=== PATIENT | female | born 1985 | race Caucasian/White ===

== ENCOUNTER 2021-11-29 16:44 | Inpatient (IN) ==
[2021-11-29] MEDS ORDERED: POTASSIUM CHL 60 MEQ/NS 0.45% 500 ML IV PRN (16:48)
[2021-11-29] MEDS ORDERED: K-RIDER 10 MEQ/NS 100 ML 10 MEQ/100 ML BAG IV PRN (16:48)
[2021-11-29] MEDS ORDERED: POTASSIUM CHLORIDE LIQ 20 MEQ UDC PO PRN (16:48)
[2021-11-29] MEDS ORDERED: MICRO K EXTEN CAP 10 MEQ PO PRN (16:48)
[2021-11-29] MEDS ORDERED: NS + KCL 20 MEQ/L 1,000 ML IV SCH (17:00)
[2021-11-29] MEDS ORDERED: ZOFRAN INJ 4 MG VIAL IVP PRN (18:11)
[2021-11-29] MEDS: KLOR-CON PO PRN (18:18)
--- NOTE | 2021-11-29 18:20 | DR.H&P ---
H&P - History & Physical for Day of: H&P Date: 11/29/21 - Chief Complaint Chief Complaint: N/V, WEAKNESS, "LOW POTASSIUM" - History of Present Illness History of Present Illness: PT IS 36 WF DIRECT ADMIT WITH HYPOKALEMIA AND N/V/D. PT REPORTS SHE HAD N/V OVER THE WEEKEND, MORE SEVERE ON SATURDAY. PT HAD OUTPT LABS WITH CRITICAL POTASSIUM REPORT THIS MORNING OF 1.6 PT WAS TREATED WITH POTASSIUM 60 MEQ PO THEN AND SENT TO [facility]. REPEAT POTASSIUM CRITICAL CONFIRMED, PT ADMITTED TO ICU FOR TREATMENT AND EVALUATION OF ACUTE ILLNESS. PT REPORTS PMH OF HYPERTENSION ON LISINOPRIL 10MG PO DAILY. PT REPORTS GERD, NOT CURRENTLY TAKING OMEPRAZOLE. PT DENIES ANY FEVER OR SOB. PT DENIES ANY KNOWN HISTORY OF HYPOKALEMIA. - Past Medical History Past Medical History: Hypertension - Past Surgical History Surgical History: Cholecystectomy, Other - Family History Family Medical History: Diabetes Mellitus, Cancer, [place], Hypertension - Social History Does patient currently use any type of tobacco product: No Have you used tobacco products in the last 12 months: No Type of Tobacco Use: None Does any household member use tobacco: No Alcohol Use: Occasionally Drug Use: None Risks, benefits, and alternatives of opioids discussed: No Prescription drug monitoring program results: PDMP reviewed and no concerns identified - Medications Home Medications: No Known Drug Allergies Allergy (Verified 11/29/21 17:54) - Review of Systems Constitutional: Weakness, Malaise Eyes: No Symptoms Reported ENT: No Symptoms Reported Respiratory: No Symptoms Reported Cardiovascular: No Symptoms Reported Gastrointestinal: Nausea, Vomiting, Diarrhea Genitourinary: No Symptoms Reported Musculoskeletal: Other (MUSCLE CRAMPS) Skin: Rash (FACE) Neurological: Weakness ("FEELS TIRED AND WEAK") - Physical Exam Vital Signs: Temperature 98.7 F Pulse Rate 96 Respiratory Rate 24 Blood Pressure 125/81 O2 Sat by Pulse Oximetry 98 Oriented: Normal Eyes: Normal Ear: Normal Nose: Normal Throat: Normal Respiratory: RLL Diminished, LLL Diminished Cardiovascular: Normal : Normal Auscultation: Bowel Sounds: Normal Palpation: Normal Tenderness: Epigastric Skin: Decreased Turgur, Rash (RED MACULAR, PAPULAR RASH TO BILATERAL CHEEKS) Musculoskeletal: negative: Swelling, Tender Psychiatric: Anxiety Affect: Anxious Speech Pattern: Clear, Appropriate - Assessment/Plan (1) Hypokalemia Status: Acute Plan: ADMIT, ICU, POTASSIUM REPLACEMENT PROTOCOL. STAT EKG, CONTINUOUS CARDIAC MONITORING, CARDIAC ENZYMES. IV HYDRATION, STRICT I&OS. BLOOD, URINE AND STOOL CULTURES ON ADMISSION. BP AND BS CONTROL (2) Metabolic alkalosis Status: Acute (3) Acute gastroenteritis Status: Acute (4) Dehydration Status: Acute (5) Hypertension Status: Acute Plan: BP MONITORING - Allergies Allergies/Adverse Reactions: Allergies Allergy/AdvReac Type Severity Reaction Status Date / Time No Known Drug Allergies Allergy Verified 11/29/21 17:54
--- NOTE | 2021-11-29 18:21 | RAD ---
Chest PA and lateral with lordotic viewIndication: HypokalemiaCOMPARISONNo recent prior chest imagingFINDINGSThere is no pneumothorax or effusion. No dense consolidation seen. Heart size is normal.IMPRESSION: No acute chest process.Electronically signed by: GARCIA REYNOSO (Nov 29, 2021 18:19:50)
[2021-11-29 18:30] LABS: BASOPHILS % (AUTO) 0.6 % (0.2-1.0); EOSINOPHILS % (AUTO) 0.4 % (0.9-2.9); HEMATOCRIT 36.9 % (36.0-47.0); HEMOGLOBIN 13.4 g/dL (12.0-16.0); LYMPHOCYTES # (AUTO) 2.3 X10^3/uL (1.3-2.9); LYMPHOCYTES % (AUTO) 31.7 % (21.0-51.0); MEAN CORPUSCULAR HEMOGLOBIN 38.8 pg (27.0-34.0); MEAN CORPUSCULAR HGB CONC 36.2 g/dL (33.0-35.0); MEAN CORPUSCULAR VOLUME 107.3 fL (80.0-100.0); MEAN PLATELET VOLUME 8.9 fL (7.4-11.0); MONOCYTES # (AUTO) 0.4 x10^3/uL (0.3-0.8); MONOCYTES % (AUTO) 5.3 % (0.0-13.0); NEUTROPHILS # (AUTO) 4.5 x10^3/uL (2.2-4.8); RED BLOOD COUNT 3.44 X10^6/uL (3.5-5.4); RED CELL DISTRIBUTION WIDTH 13.6 % (11.6-16.5); WHITE BLOOD COUNT 7.3 X10^3/uL (3.6-10.0)
[2021-11-29 18:31] LABS: ABG BASE EXCESS > 30.0 mmol/L (-2.0-2.0)
[2021-11-29 18:32] LABS: ABG HCO3 56.8 mmol/L (22-26)
[2021-11-29 18:41] LABS: SERUM ACETONE NEGATIVE (NEGATIVE)
[2021-11-29 18:47] LABS: PLATELET MORPHOLOGY COMMENT NORMAL (NORMAL)
[2021-11-29 18:51] LABS: ALANINE AMINOTRANSFERASE 53 Units/L (12-78); ALKALINE PHOSPHATASE 102 Units/L (46-116); ASPARTATE AMINO TRANSFERASE 89 Units/L (15-37); BLOOD UREA NITROGEN 4 mg/dL (7-18); CALCIUM 7.7 mg/dL (8.5-10.1); CHLORIDE 86 mmol/L (98-107); COR CA(FOR HYPOALB) 8.5 mg/dL (8.5-10.1); FREE T4 (FREE THYROXINE) 1.28 ng/dL (0.76-1.46); MAGNESIUM 1.4 mg/dL (1.7-2.9); SODIUM 136 mmol/L (136-145); TOTAL PROTEIN 6.4 g/dL (6.4-8.2); TSH (3RD GENERATION) 5.077 uIU/mL (0.358-3.74); eGFR NON BLACK RACES > 60 (>60)
[2021-11-29 19:06] LABS: IRON 257 ug/dL (50-175)
[2021-11-29 19:17] LABS: CARBON DIOXIDE > 45.0 mmol/L (21-32)
[2021-11-29 19:58] LABS: LACTIC ACID 2.7 mmol/L (0.4-2.0)
[2021-11-29] MEDS: MAGNESIUM SULFATE 1 GRAM/100 mL PREMIX 1 G/100 ML BAG IV SCH ×2 (20:25→21:40)
[2021-11-29 20:31] LABS: BILIRUBIN,URINE NEGATIVE (NEGATIVE); BLOOD/HEMOGLOBIN,URINE NEGATIVE (NEGATIVE); GLUCOSE, URINE NEGATIVE (NEGATIVE); KETONES,URINE NEGATIVE (NEGATIVE); LEUKOCYTE ESTERASE ,URINE NEGATIVE (NEGATIVE); NITRITES,URINE NEGATIVE (NEGATIVE); PROTEIN,URINE NEGATIVE (NEGATIVE); UROBILINOGEN,URINE NORMAL (NORMAL)
[2021-11-29 20:35] LABS: APPEARANCE,URINE CLEAR (CLEAR); COLOR,URINE STRAW (YELLOW)
[2021-11-29] MEDS: PROTONIX INJ 40 MG VIAL IVP SCH (20:55)
[2021-11-29] MEDS ORDERED: SODIUM CHLORIDE IV ONE (22:00)
[2021-11-29] MEDS ORDERED: POTASSIUM CHLORIDE IV ONE (22:00)
[2021-11-29] MEDS: K-RIDER 10 MEQ/NS 100 ML 10 MEQ/100 ML BAG IV PRN (23:20)
[2021-11-30] MEDS: K-RIDER 10 MEQ/NS 100 ML 10 MEQ/100 ML BAG IV PRN ×3 (02:30→07:15)
[2021-11-30 05:49] LABS: ALANINE AMINOTRANSFERASE 42 Units/L (12-78); ALBUMIN 2.4 g/dL (3.4-5.0); ALKALINE PHOSPHATASE 83 Units/L (46-116); ASPARTATE AMINO TRANSFERASE 68 Units/L (15-37); BLOOD UREA NITROGEN 3 mg/dL (7-18); CALCIUM 7.2 mg/dL (8.5-10.1); CHLORIDE 95 mmol/L (98-107); COR CA(FOR HYPOALB) 8.5 mg/dL (8.5-10.1); CREATININE 0.84 mg/dL (0.55-1.02); MAGNESIUM 2.2 mg/dL (1.7-2.9); SODIUM 142 mmol/L (136-145); TOTAL PROTEIN 5.3 g/dL (6.4-8.2); eGFR NON BLACK RACES > 60 (>60)
[2021-11-30 05:54] LABS: CARBON DIOXIDE > 45.0 mmol/L (21-32)
[2021-11-30] MEDS ORDERED: NS + KCL 40 MEQ/L 1,000 ML IV SCH (06:00)
[2021-11-30 06:18] LABS: BASOPHILS % (AUTO) 0.5 % (0.2-1.0); EOSINOPHILS % (AUTO) 0.9 % (0.9-2.9); HEMOGLOBIN 11.3 g/dL (12.0-16.0); LYMPHOCYTES # (AUTO) 2.2 X10^3/uL (1.3-2.9); LYMPHOCYTES % (AUTO) 46.1 % (21.0-51.0); MEAN CORPUSCULAR HEMOGLOBIN 38.8 pg (27.0-34.0); MEAN CORPUSCULAR HGB CONC 36.4 g/dL (33.0-35.0); MEAN CORPUSCULAR VOLUME 106.5 fL (80.0-100.0); MEAN PLATELET VOLUME 8.6 fL (7.4-11.0); MONOCYTES # (AUTO) 0.2 x10^3/uL (0.3-0.8); NEUTROPHILS # (AUTO) 2.3 x10^3/uL (2.2-4.8); NEUTROPHILS % (AUTO) 48.5 % (42.0-75.0); RED BLOOD COUNT 2.91 X10^6/uL (3.5-5.4); RED CELL DISTRIBUTION WIDTH 13.2 % (11.6-16.5); WHITE BLOOD COUNT 4.7 X10^3/uL (3.6-10.0)
[2021-11-30 07:04] LABS: PLATELET MORPHOLOGY COMMENT NORMAL (NORMAL)
[2021-11-30] MEDS: POTASSIUM CHL 40 MEQ/NS 0.45% 500 ML IV PRN (09:28)
[2021-11-30] MEDS: NS + KCL 40 MEQ/L 1,000 ML IV SCH (09:30)
[2021-11-30] MEDS: ZOSYN VIAL 3.375 GRAMS 3.375 G in NS 100 ML IV 100 ML IV SCH ×3 (10:11→21:08)
[2021-11-30] MEDS: PROTONIX INJ 40 MG VIAL IVP SCH ×2 (10:11→20:39)
[2021-11-30 11:59] VITALS: BMI 36.7
[2021-11-30 18:36] LABS: ALANINE AMINOTRANSFERASE 49 Units/L (12-78); ALBUMIN 2.9 g/dL (3.4-5.0); ALKALINE PHOSPHATASE 104 Units/L (46-116); ASPARTATE AMINO TRANSFERASE 89 Units/L (15-37); BLOOD UREA NITROGEN 3 mg/dL (7-18); CALCIUM 7.6 mg/dL (8.5-10.1); CARBON DIOXIDE 41.7 mmol/L (21-32); CHLORIDE 94 mmol/L (98-107); COR CA(FOR HYPOALB) 8.5 mg/dL (8.5-10.1); CREATININE 1.06 mg/dL (0.55-1.02); SODIUM 140 mmol/L (136-145); TOTAL PROTEIN 6.4 g/dL (6.4-8.2); eGFR NON BLACK RACES > 60 (>60)
[2021-11-30 18:40] LABS: LACTIC ACID 3.7 mmol/L (0.4-2.0)
[2021-11-30] MEDS ORDERED: NS 500 ML IV 500 ML with POTASSIUM CHLORIDE INJ 40 MEQ VIAL 40 MEQ IV ONE ×2 (20:17)
[2021-12-01] MEDS: NS + KCL 40 MEQ/L 1,000 ML IV SCH ×2 (04:06→18:14)
[2021-12-01 05:20] LABS: BASOPHILS % (AUTO) 0.6 % (0.2-1.0); EOSINOPHILS # (AUTO) 0.1 x10^3/uL (0.0-0.2); EOSINOPHILS % (AUTO) 1.5 % (0.9-2.9); HEMATOCRIT 30.3 % (36.0-47.0); HEMOGLOBIN 11.1 g/dL (12.0-16.0); LYMPHOCYTES % (AUTO) 49.2 % (21.0-51.0); MEAN CORPUSCULAR HEMOGLOBIN 39.5 pg (27.0-34.0); MEAN CORPUSCULAR HGB CONC 36.7 g/dL (33.0-35.0); MEAN CORPUSCULAR VOLUME 107.6 fL (80.0-100.0); MEAN PLATELET VOLUME 8.4 fL (7.4-11.0); MONOCYTES # (AUTO) 0.2 x10^3/uL (0.3-0.8); MONOCYTES % (AUTO) 4.1 % (0.0-13.0); NEUTROPHILS # (AUTO) 1.8 x10^3/uL (2.2-4.8); NEUTROPHILS % (AUTO) 44.6 % (42.0-75.0); RED BLOOD COUNT 2.81 X10^6/uL (3.5-5.4); RED CELL DISTRIBUTION WIDTH 13.1 % (11.6-16.5)
[2021-12-01] MEDS: ZOSYN VIAL 3.375 GRAMS 3.375 G in NS 100 ML IV 100 ML IV SCH ×3 (05:25→21:27)
[2021-12-01 05:34] LABS: ALANINE AMINOTRANSFERASE 37 Units/L (12-78); ALBUMIN 2.3 g/dL (3.4-5.0); ALKALINE PHOSPHATASE 81 Units/L (46-116); ASPARTATE AMINO TRANSFERASE 64 Units/L (15-37); BLOOD UREA NITROGEN 3 mg/dL (7-18); CALCIUM 7.2 mg/dL (8.5-10.1); CARBON DIOXIDE 42.1 mmol/L (21-32); CHLORIDE 99 mmol/L (98-107); COR CA(FOR HYPOALB) 8.6 mg/dL (8.5-10.1); CREATINE KINASE 743 Units/L (26-192); CREATININE 0.79 mg/dL (0.55-1.02); MAGNESIUM 1.9 mg/dL (1.7-2.9); SODIUM 143 mmol/L (136-145); TOTAL PROTEIN 5.2 g/dL (6.4-8.2); eGFR NON BLACK RACES > 60 (>60)
[2021-12-01 05:42] LABS: PLATELET MORPHOLOGY COMMENT NORMAL (NORMAL); STOMATOCYTES 1+
[2021-12-01] MEDS: PROTONIX INJ 40 MG VIAL IVP SCH ×2 (09:15→21:27)
[2021-12-01] MEDS: K-DUR TAB 20 MEQ PO PRN ×2 (09:16→11:36)
[2021-12-01] MEDS: POTASSIUM CHL 40 MEQ/NS 0.45% 500 ML IV PRN (09:41)
[2021-12-01 15:00] LABS: ABG BASE EXCESS 20.5 mmol/L (-2.0-2.0)
[2021-12-01 15:01] LABS: ABG HCO3 42.7 mmol/L (22-26)
[2021-12-01] MEDS: METROGEL TOP SCH ×2 (18:14→21:27)
[2021-12-01] MEDS: KLOR-CON PO PRN (19:46)
[2021-12-01] MEDS: MAGNESIUM SULFATE 1 GRAM/100 mL PREMIX 1 G/100 ML BAG IV PRN (22:29)
[2021-12-02] MEDS: MAGNESIUM SULFATE 1 GRAM/100 mL PREMIX 1 G/100 ML BAG IV PRN (00:30)
[2021-12-02] MEDS: NS + KCL 40 MEQ/L 1,000 ML IV SCH ×4 (01:26→20:43)
[2021-12-02 05:08] LABS: BASOPHILS # (AUTO) 0.1 X10^3/uL (0.0-0.1); BASOPHILS % (AUTO) 1.4 % (0.2-1.0); EOSINOPHILS # (AUTO) 0.1 x10^3/uL (0.0-0.2); EOSINOPHILS % (AUTO) 2.2 % (0.9-2.9); HEMATOCRIT 29.4 % (36.0-47.0); HEMOGLOBIN 10.6 g/dL (12.0-16.0); LYMPHOCYTES # (AUTO) 2.3 X10^3/uL (1.3-2.9); LYMPHOCYTES % (AUTO) 48.1 % (21.0-51.0); MEAN CORPUSCULAR HEMOGLOBIN 38.8 pg (27.0-34.0); MEAN CORPUSCULAR HGB CONC 36.1 g/dL (33.0-35.0); MEAN CORPUSCULAR VOLUME 107.7 fL (80.0-100.0); MEAN PLATELET VOLUME 8.4 fL (7.4-11.0); MONOCYTES # (AUTO) 0.3 x10^3/uL (0.3-0.8); MONOCYTES % (AUTO) 5.5 % (0.0-13.0); NEUTROPHILS # (AUTO) 2.1 x10^3/uL (2.2-4.8); NEUTROPHILS % (AUTO) 42.8 % (42.0-75.0); RED BLOOD COUNT 2.73 X10^6/uL (3.5-5.4); RED CELL DISTRIBUTION WIDTH 13.4 % (11.6-16.5); WHITE BLOOD COUNT 4.8 X10^3/uL (3.6-10.0)
[2021-12-02 05:24] LABS: ALANINE AMINOTRANSFERASE 33 Units/L (12-78); ALBUMIN 2.1 g/dL (3.4-5.0); ALKALINE PHOSPHATASE 78 Units/L (46-116); ASPARTATE AMINO TRANSFERASE 52 Units/L (15-37); BLOOD UREA NITROGEN 2 mg/dL (7-18); CALCIUM 7.3 mg/dL (8.5-10.1); CHLORIDE 104 mmol/L (98-107); COR CA(FOR HYPOALB) 8.8 mg/dL (8.5-10.1); CREATININE 0.74 mg/dL (0.55-1.02); MAGNESIUM 2.2 mg/dL (1.7-2.9); SODIUM 142 mmol/L (136-145); eGFR NON BLACK RACES > 60 (>60)
[2021-12-02 05:43] LABS: PLATELET MORPHOLOGY COMMENT NORMAL (NORMAL)
[2021-12-02 05:44] LABS: STOMATOCYTES SLIGHT
[2021-12-02] MEDS: ZOSYN VIAL 3.375 GRAMS 3.375 G in NS 100 ML IV 100 ML IV SCH ×3 (06:21→21:11)
[2021-12-02] MEDS ORDERED: NS 100 ML IV 100 ML ONE (06:55)
[2021-12-02] MEDS: METROGEL TOP SCH ×2 (08:18→20:02)
[2021-12-02] MEDS: K-DUR TAB 20 MEQ PO PRN (08:18)
[2021-12-02] MEDS: PROTONIX INJ 40 MG VIAL IVP SCH ×2 (08:18→20:03)
--- NOTE | 2021-12-02 08:27 | CT ---
HISTORYABDOMINAL PAIN, R/O COLITISSTUDYABDOMEN/PELVIS WITH CONCOMPARISONNone availableTECHNIQUEMultiple axial images of the abdomen and pelvis were obtained from the lung bases to the pubic symphysis after the administration of IV contrast. Dose reduction techniques including Automated Exposure Control (AEC) and adjustment of mA and kV were utilized.FINDINGS[The lung bases are clear. Hepatic steatosis without focal hepatic lesion. Liver is mildly enlarged 18 cm in craniocaudal dimension. Previous cholecystectomy. Bile ducts are caliber. The spleen, pancreas and adrenal glands are normal. Neither kidney demonstrates evidence of nephrolithiasis, hydronephrosis or solid mass. Upper GI tract demonstrates no evidence of mass or obstruction. Urinary bladder is normal. No pelvic or adnexal mass. The rectum and distal colon demonstrate mild bowel wall thickening without pericolonic stranding. The terminal ileum and appendix are normal. No pelvic free fluid. Abdominal aorta is normal in caliber. No enlarged abdominal or pelvic lymph node. Review of bone windows demonstrates no acute osseous abnormality.IMPRESSIONMild circumferential thickening of the rectum and distal colon without pericolonic fat stranding needs clinical correlation for acute versus chronic proctocolitis. No evidence of mass or obstruction.Hepatic steatosis and mild hepatomegaly.Refer to above for additional incidental, nonacute findings.Electronically signed by: CHINTAN GARCIA (Dec 02, 2021 08:25:19)
--- NOTE | 2021-12-02 11:03 | PCM.PROG ---
Progress Note Progress Note for Day of Date of Exam: 12/02/21 Subjective Subjective: Patient seen at bedside, no events overnight. She had some nausea and vomiting this morning after drinking contrast. She states she feels better now. Her potassium level is 3.3. She has not eaten anything this morning. No diarrhea today. Patient reports having proctitis in 2019 and was treated with abx outpatient. She did not see GI. Denies any blood in stool. CTAP: acute vs chronic proctocolitis, hepatomegaly Stool Cx pending Fecal WBCs + Urine cx: 3+ organisms, contamination Blood cx: no growth Plan: continue current treatment with IV Zosyn, NS and potassium replacement. Replace K as per protocol. Advance diet as tolerated. Follow pending Cx. Continue anti-emetics. Advised to ambulate as tolerated. Monitor AM labs. Past Medical Family Social History Allergies: Allergies No Known Drug Allergies Allergy (Verified 11/29/21 17:54) Vital Signs and I&O's Vital Signs: Temperature 97.9 F Pulse Rate 80 Respiratory Rate 24 Blood Pressure 99/63 O2 Sat by Pulse Oximetry 100 Intake and Output: Intake & Output 11/29/21 11/30/21 12/01/21 12/02/21 23:59 23:59 23:59 23:59 Intake Total 240 / 240 4064 / 4064 3401 / 3401 394 / 394 Output Total 3 / 3 Balance 240 / 240 4064 / 4064 3398 / 3398 394 / 394 Physical Exam Oriented: Normal Eyes: Normal Ear: Normal Nose: Normal Throat: Normal Cardiovascular: Normal : Normal Auscultation: Bowel Sounds: Normal Tenderness: Normal Skin: Normal and Decreased Turgur Musculoskeletal: negative Swelling or Tender Psychiatric: Normal Affect: Normal Speech Pattern: Clear and Appropriate Laboratory and Diagnostics Result Diagrams: 12/02/21 04:50 12/02/21 04:50 Labs: 12/02/21 06:48 Stool - Final 11/29/21 19:13 Blood Blood Culture - Preliminary 11/29/21 18:50 Blood Blood Culture - Preliminary 11/29/21 20:10 Urine,Clean Catch Urine Culture - Final Laboratory WBC 4.8 X10^3/uL (3.6-10.0) 12/02/21 04:50 RBC 2.73 X10^6/uL (3.5-5.4) L 12/02/21 04:50 Hgb 10.6 g/dL (12.0-16.0) L 12/02/21 04:50 Hct 29.4 % (36.0-47.0) L 12/02/21 04:50 MCV 107.7 fL (80.0-100.0) H 12/02/21 04:50 MCH 38.8 pg (27.0-34.0) H 12/02/21 04:50 MCHC 36.1 g/dL (33.0-35.0) H 12/02/21 04:50 RDW 13.4 % (11.6-16.5) 12/02/21 04:50 Plt Count 218 X10^3/uL (150.0-450.0) 12/02/21 04:50 Plt Count Comment Adequate (ADEQUATE) 12/02/21 04:50 MPV 8.4 fL (7.4-11.0) 12/02/21 04:50 Neut % (Auto) 42.8 % (42.0-75.0) 12/02/21 04:50 Lymph % (Auto) 48.1 % (21.0-51.0) 12/02/21 04:50 [place] % (Auto) 5.5 % (0.0-13.0) 12/02/21 04:50 Eos % (Auto) 2.2 % (0.9-2.9) 12/02/21 04:50 Baso % (Auto) 1.4 % (0.2-1.0) H 12/02/21 04:50 Neut # (Auto) 2.1 x10^3/uL (2.2-4.8) L 12/02/21 04:50 Lymph # (Auto) 2.3 X10^3/uL (1.3-2.9) 12/02/21 04:50 [place] # (Auto) 0.3 x10^3/uL (0.3-0.8) 12/02/21 04:50 Eos # (Auto) 0.1 x10^3/uL (0.0-0.2) 12/02/21 04:50 Baso # (Auto) 0.1 X10^3/uL (0.0-0.1) 12/02/21 04:50 Absolute Nucleated RBC 0.1 /100WBC 12/02/21 04:50 Plt Morphology Comment Normal (NORMAL) 12/02/21 04:50 RBC Morphology Abnormal (NORMAL) A 12/02/21 04:50 Macrocytosis 1+ A 12/02/21 04:50 Stomatocytes Slight A 12/02/21 04:50 ESR 7 MM/HOUR (0-20) 11/29/21 17:25 Sample Site Lbra 12/01/21 14:55 ABG pH 7.670 (7.35-7.45) H* 12/01/21 14:55 ABG pCO2 37.0 mmHg (35.0-45.0) 12/01/21 14:55 ABG pO2 88.0 mmHg (80.0-100.0) 12/01/21 14:55 ABG HCO3 42.7 mmol/L (22-26) H* 12/01/21 14:55 ABG O2 Saturation 98.0 % (90-100) 12/01/21 14:55 ABG Base Excess 20.5 mmol/L (-2.0-2.0) H 12/01/21 14:55 Gregory Test N/a 12/01/21 14:55 A-a Gradient 15.0 mmHg 12/01/21 14:55 FiO2 21.0 12/01/21 14:55 Blood Gas Comments Pt melissa well elj 12/01/21 14:55 Sodium 142 mmol/L (136-145) 12/02/21 04:50 Corrected Sodium TNP 12/02/21 04:50 Potassium 3.3 mmol/L (3.5-5.1) L 12/02/21 04:50 Chloride 104 mmol/L (98-107) 12/02/21 04:50 Carbon Dioxide 36.0 mmol/L (21-32) H 12/02/21 04:50 BUN 2 mg/dL (7-18) L 12/02/21 04:50 Creatinine 0.74 mg/dL (0.55-1.02) 12/02/21 04:50 Est GFR (MDRD) Af Amer > 60 (>60) 12/02/21 04:50 Est GFR (MDRD) Non-Af > 60 (>60) 12/02/21 04:50 Glucose 83 mg/dL (65-99) 12/02/21 04:50 POC Glucose (mg/dL) 92 mg/dL (65-99) 11/30/21 12:03 Lactic Acid 1.4 mmol/L (0.4-2.0) 12/01/21 05:35 Calcium 7.3 mg/dL (8.5-10.1) L 12/02/21 04:50 Corrected Calcium 8.8 mg/dL (8.5-10.1) 12/02/21 04:50 Magnesium 2.2 mg/dL (1.7-2.9) 12/02/21 04:50 Iron 257 ug/dL (50-175) H 11/29/21 17:25 Transferrin 181 mg/dL (202-364) L 11/29/21 17:25 Ferritin 292 ng/mL (8-252) H 11/29/21 17:25 Total Bilirubin 0.90 mg/dL (0.2-1.0) 12/02/21 04:50 AST 52 Units/L (15-37) H 12/02/21 04:50 ALT 33 Units/L (12-78) 12/02/21 04:50 Alkaline Phosphatase 78 Units/L (46-116) 12/02/21 04:50 Creatine Kinase 743 Units/L (26-192) H 12/01/21 04:11 Troponin I High Sens 9.0 ng/L (4.0-60.0) 12/01/21 04:11 C-Reactive Protein 1.90 mg/L (0-3.0) 11/29/21 17:25 Total Protein 5.0 g/dL (6.4-8.2) L 12/02/21 04:50 Albumin 2.1 g/dL (3.4-5.0) L 12/02/21 04:50 Globulin 2.9 g/dL (2.5-4.5) 12/02/21 04:50 Albumin/Globulin Ratio 0.7 Ratio (1.1-2.1) L 12/02/21 04:50 Vitamin B12 1269 pg/mL (193-986) H 11/29/21 17:25 Folate 1.4 ng/mL (>8.6) L 11/29/21 17:25 Free T4 1.28 ng/dL (0.76-1.46) 11/29/21 17:25 TSH 3rd Generation 5.077 uIU/mL (0.358-3.74) H 11/29/21 17:25 Specimen Type Clean catch urine 11/29/21 20:10 Urine Color Straw (YELLOW) 11/29/21 20:10 Urine Appearance Clear (CLEAR) 11/29/21 20:10 Urine pH 7.0 (5.0 - 8.0) 11/29/21 20:10 Ur Specific [place] 1.015 (1.000-1.030) 11/29/21 20:10 Urine Protein Negative (NEGATIVE) 11/29/21 20:10 Urine Glucose (UA) Negative (NEGATIVE) 11/29/21 20:10 Urine Ketones Negative (NEGATIVE) 11/29/21 20:10 Urine Blood Negative (NEGATIVE) 11/29/21 20:10 Urine Nitrite Negative (NEGATIVE) 11/29/21 20:10 Urine Bilirubin Negative (NEGATIVE) 11/29/21 20:10 Urine Urobilinogen Normal (NORMAL) 11/29/21 20:10 Ur Leukocyte Esterase Negative (NEGATIVE) 11/29/21 20:10 Stool Description 150g unformed brown 12/02/21 06:48 Stl Occult Blood (IFOB) Negative (NEGATIVE) 12/02/21 06:48 Stool for White Cells Positive (NEGATIVE) A 12/02/21 06:48 Stl C. diff Tox B Gene Positive (NEGATIVE) A 12/02/21 06:48 Stl C. diff [id number] Presumptive negative (NEGATIVE) 12/02/21 06:48 Stool H. pylori Ag Negative (NEGATIVE) 12/02/21 06:48 Acetone, Semi-Quant Negative (NEGATIVE) 11/29/21 17:25 C. difficile Toxin A&B Negative (NEGATIVE) 12/02/21 06:48 Plan (1) Proctocolitis: Status: Acute (2) Hypokalemia: Status: Acute (3) Metabolic alkalosis: Status: Acute (4) Acute gastroenteritis: Status: Acute (5) Dehydration: Status: Acute (6) Hypertension: Status: Acute Plan: BP MONITORING (7) UTI (urinary tract infection): Status: Acute
[2021-12-02] MEDS: VANCOMYCIN HCL 250 MG CAP PO SCH ×2 (16:59→20:02)
[2021-12-03 05:10] LABS: BASOPHILS % (AUTO) 0.7 % (0.2-1.0); EOSINOPHILS # (AUTO) 0.1 x10^3/uL (0.0-0.2); EOSINOPHILS % (AUTO) 2.3 % (0.9-2.9); HEMATOCRIT 30.8 % (36.0-47.0); LYMPHOCYTES # (AUTO) 2.3 X10^3/uL (1.3-2.9); LYMPHOCYTES % (AUTO) 42.8 % (21.0-51.0); MEAN CORPUSCULAR HEMOGLOBIN 38.9 pg (27.0-34.0); MEAN CORPUSCULAR HGB CONC 35.7 g/dL (33.0-35.0); MEAN PLATELET VOLUME 8.3 fL (7.4-11.0); MONOCYTES # (AUTO) 0.4 x10^3/uL (0.3-0.8); MONOCYTES % (AUTO) 6.6 % (0.0-13.0); NEUTROPHILS # (AUTO) 2.5 x10^3/uL (2.2-4.8); NEUTROPHILS % (AUTO) 47.6 % (42.0-75.0); RED BLOOD COUNT 2.83 X10^6/uL (3.5-5.4); RED CELL DISTRIBUTION WIDTH 13.2 % (11.6-16.5); WHITE BLOOD COUNT 5.3 X10^3/uL (3.6-10.0)
[2021-12-03] MEDS: ZOSYN VIAL 3.375 GRAMS 3.375 G in NS 100 ML IV 100 ML IV SCH ×3 (05:16→21:00)
[2021-12-03 05:18] LABS: ALANINE AMINOTRANSFERASE 31 Units/L (12-78); ALBUMIN 2.3 g/dL (3.4-5.0); ALKALINE PHOSPHATASE 79 Units/L (46-116); ASPARTATE AMINO TRANSFERASE 45 Units/L (15-37); BLOOD UREA NITROGEN 2 mg/dL (7-18); CALCIUM 7.7 mg/dL (8.5-10.1); CARBON DIOXIDE 31.3 mmol/L (21-32); CHLORIDE 106 mmol/L (98-107); COR CA(FOR HYPOALB) 9.1 mg/dL (8.5-10.1); CREATININE 0.75 mg/dL (0.55-1.02); MAGNESIUM 1.8 mg/dL (1.7-2.9); SODIUM 142 mmol/L (136-145); TOTAL PROTEIN 5.4 g/dL (6.4-8.2); eGFR NON BLACK RACES > 60 (>60)
[2021-12-03 05:32] LABS: PLATELET MORPHOLOGY COMMENT NORMAL (NORMAL); STOMATOCYTES 1+
[2021-12-03] MEDS: K-DUR TAB 20 MEQ PO PRN (08:35)
[2021-12-03] MEDS: VANCOMYCIN HCL 250 MG CAP PO SCH ×4 (08:35→20:00)
[2021-12-03] MEDS: MAGNESIUM SULFATE 1 GRAM/100 mL PREMIX 1 G/100 ML BAG IV PRN ×2 (08:36→10:06)
[2021-12-03] MEDS: PROTONIX INJ 40 MG VIAL IVP SCH ×2 (08:36→20:01)
[2021-12-03] MEDS: METROGEL TOP SCH ×2 (08:49→20:16)
--- NOTE | 2021-12-03 10:43 | PCM.PROG ---
Progress Note Progress Note for Day of Date of Exam: 12/03/21 Subjective Subjective: Patient seen at bedside, no events overnight. She is feeling slightly better. She had 3-4 episodes of diarrhea yesterday and 1 today. She had some nausea but resolved. She was able to eat a little bit, appetite is better. C. diff +, patient was started on oral Vancomycin. CTAP: acute vs chronic proctocolitis, hepatomegaly Stool Cx : (-) + C diff Urine cx: 3+ organisms, contamination Blood cx: no growth Plan: continue current treatment with IV Zosyn and PO Vancomycin. Continue hydration and potassium/ mag replacement as per protocol. Advance diet as tolerated. Continue anti-emetics. Advised to ambulate as tolerated. Monitor AM labs. Past Medical Family Social History Allergies: Allergies No Known Drug Allergies Allergy (Verified 11/29/21 17:54) Vital Signs and I&O's Vital Signs: Temperature 98.9 F Pulse Rate [Right] 82 Pulse Rate 84 Respiratory Rate 20 Blood Pressure [Left Arm] 110/73 Blood Pressure 113/54 O2 Sat by Pulse Oximetry 99 Intake and Output: Intake & Output 11/30/21 12/01/21 12/02/21 12/03/21 23:59 23:59 23:59 23:59 Intake Total 4064 / 4064 3401 / 3401 2523 / 2523 369 / 369 Output Total 50 / 50 Balance 4064 / 4064 3398 / 3398 2473 / 2473 369 / 369 Physical Exam Oriented: Normal Eyes: Normal Ear: Normal Nose: Normal Throat: Normal Cardiovascular: Normal Auscultation: Bowel Sounds: Normal Tenderness: RLQ, Epigastric and Mild Skin: Normal and Decreased Turgur Musculoskeletal: negative Swelling or Tender Psychiatric: Normal Affect: Normal Speech Pattern: Clear and Appropriate Laboratory and Diagnostics Result Diagrams: 12/03/21 04:40 12/03/21 04:40 Labs: 12/02/21 06:48 Stool Stool Culture - Preliminary 12/02/21 06:48 Stool - Final 11/29/21 19:13 Blood Blood Culture - Preliminary 11/29/21 18:50 Blood Blood Culture - Preliminary 11/29/21 20:10 Urine,Clean Catch Urine Culture - Final Laboratory WBC 5.3 X10^3/uL (3.6-10.0) 12/03/21 04:40 RBC 2.83 X10^6/uL (3.5-5.4) L 12/03/21 04:40 Hgb 11.0 g/dL (12.0-16.0) L 12/03/21 04:40 Hct 30.8 % (36.0-47.0) L 12/03/21 04:40 MCV 109.0 fL (80.0-100.0) H 12/03/21 04:40 MCH 38.9 pg (27.0-34.0) H 12/03/21 04:40 MCHC 35.7 g/dL (33.0-35.0) H 12/03/21 04:40 RDW 13.2 % (11.6-16.5) 12/03/21 04:40 Plt Count 250 X10^3/uL (150.0-450.0) 12/03/21 04:40 Plt Count Comment Adequate (ADEQUATE) 12/03/21 04:40 MPV 8.3 fL (7.4-11.0) 12/03/21 04:40 Neut % (Auto) 47.6 % (42.0-75.0) 12/03/21 04:40 Lymph % (Auto) 42.8 % (21.0-51.0) 12/03/21 04:40 [place] % (Auto) 6.6 % (0.0-13.0) 12/03/21 04:40 Eos % (Auto) 2.3 % (0.9-2.9) 12/03/21 04:40 Baso % (Auto) 0.7 % (0.2-1.0) 12/03/21 04:40 Neut # (Auto) 2.5 x10^3/uL (2.2-4.8) 12/03/21 04:40 Lymph # (Auto) 2.3 X10^3/uL (1.3-2.9) 12/03/21 04:40 [place] # (Auto) 0.4 x10^3/uL (0.3-0.8) 12/03/21 04:40 Eos # (Auto) 0.1 x10^3/uL (0.0-0.2) 12/03/21 04:40 Baso # (Auto) 0.0 X10^3/uL (0.0-0.1) 12/03/21 04:40 Absolute Nucleated RBC 0.1 /100WBC 12/03/21 04:40 Plt Morphology Comment Normal (NORMAL) 12/03/21 04:40 RBC Morphology Abnormal (NORMAL) A 12/03/21 04:40 Macrocytosis 1+ A 12/03/21 04:40 Stomatocytes 1+ A 12/03/21 04:40 ESR 7 MM/HOUR (0-20) 11/29/21 17:25 Sample Site Lbra 12/01/21 14:55 ABG pH 7.670 (7.35-7.45) H* 12/01/21 14:55 ABG pCO2 37.0 mmHg (35.0-45.0) 12/01/21 14:55 ABG pO2 88.0 mmHg (80.0-100.0) 12/01/21 14:55 ABG HCO3 42.7 mmol/L (22-26) H* 12/01/21 14:55 ABG O2 Saturation 98.0 % (90-100) 12/01/21 14:55 ABG Base Excess 20.5 mmol/L (-2.0-2.0) H 12/01/21 14:55 Gregory Test N/a 12/01/21 14:55 A-a Gradient 15.0 mmHg 12/01/21 14:55 FiO2 21.0 12/01/21 14:55 Blood Gas Comments Pt melissa well elj 12/01/21 14:55 Sodium 142 mmol/L (136-145) 12/03/21 04:40 Corrected Sodium TNP 12/03/21 04:40 Potassium 3.7 mmol/L (3.5-5.1) 12/03/21 04:40 Chloride 106 mmol/L (98-107) 12/03/21 04:40 Carbon Dioxide 31.3 mmol/L (21-32) 12/03/21 04:40 BUN 2 mg/dL (7-18) L 12/03/21 04:40 Creatinine 0.75 mg/dL (0.55-1.02) 12/03/21 04:40 Est GFR (MDRD) Af Amer > 60 (>60) 12/03/21 04:40 Est GFR (MDRD) Non-Af > 60 (>60) 12/03/21 04:40 Glucose 79 mg/dL (65-99) 12/03/21 04:40 POC Glucose (mg/dL) 92 mg/dL (65-99) 11/30/21 12:03 Lactic Acid 1.4 mmol/L (0.4-2.0) 12/01/21 05:35 Calcium 7.7 mg/dL (8.5-10.1) L 12/03/21 04:40 Corrected Calcium 9.1 mg/dL (8.5-10.1) 12/03/21 04:40 Magnesium 1.8 mg/dL (1.7-2.9) 12/03/21 04:40 Iron 257 ug/dL (50-175) H 11/29/21 17:25 Transferrin 181 mg/dL (202-364) L 11/29/21 17:25 Ferritin 292 ng/mL (8-252) H 11/29/21 17:25 Total Bilirubin 0.80 mg/dL (0.2-1.0) 12/03/21 04:40 AST 45 Units/L (15-37) H 12/03/21 04:40 ALT 31 Units/L (12-78) 12/03/21 04:40 Alkaline Phosphatase 79 Units/L (46-116) 12/03/21 04:40 Creatine Kinase 743 Units/L (26-192) H 12/01/21 04:11 Troponin I High Sens 9.0 ng/L (4.0-60.0) 12/01/21 04:11 C-Reactive Protein 1.90 mg/L (0-3.0) 11/29/21 17:25 Total Protein 5.4 g/dL (6.4-8.2) L 12/03/21 04:40 Albumin 2.3 g/dL (3.4-5.0) L 12/03/21 04:40 Globulin 3.1 g/dL (2.5-4.5) 12/03/21 04:40 Albumin/Globulin Ratio 0.7 Ratio (1.1-2.1) L 12/03/21 04:40 Vitamin B12 1269 pg/mL (193-986) H 11/29/21 17:25 Folate 1.4 ng/mL (>8.6) L 11/29/21 17:25 Free T4 1.28 ng/dL (0.76-1.46) 11/29/21 17:25 TSH 3rd Generation 5.077 uIU/mL (0.358-3.74) H 11/29/21 17:25 Specimen Type Clean catch urine 11/29/21 20:10 Urine Color Straw (YELLOW) 11/29/21 20:10 Urine Appearance Clear (CLEAR) 11/29/21 20:10 Urine pH 7.0 (5.0 - 8.0) 11/29/21 20:10 Ur Specific [place] 1.015 (1.000-1.030) 11/29/21 20:10 Urine Protein Negative (NEGATIVE) 11/29/21 20:10 Urine Glucose (UA) Negative (NEGATIVE) 11/29/21 20:10 Urine Ketones Negative (NEGATIVE) 11/29/21 20:10 Urine Blood Negative (NEGATIVE) 11/29/21 20:10 Urine Nitrite Negative (NEGATIVE) 11/29/21 20:10 Urine Bilirubin Negative (NEGATIVE) 11/29/21 20:10 Urine Urobilinogen Normal (NORMAL) 11/29/21 20:10 Ur Leukocyte Esterase Negative (NEGATIVE) 11/29/21 20:10 Stool Description 150g unformed brown 12/02/21 06:48 Stl Occult Blood (IFOB) Negative (NEGATIVE) 12/02/21 06:48 Stool for White Cells Positive (NEGATIVE) A 12/02/21 06:48 Stl C. diff Tox B Gene Positive (NEGATIVE) A 12/02/21 06:48 Stl C. diff [id number] Presumptive negative (NEGATIVE) 12/02/21 06:48 Stool H. pylori Ag Negative (NEGATIVE) 12/02/21 06:48 Acetone, Semi-Quant Negative (NEGATIVE) 11/29/21 17:25 C. difficile Toxin A&B Negative (NEGATIVE) 12/02/21 06:48 Plan (1) C. difficile colitis: Status: Acute (2) Proctocolitis: Status: Acute (3) Hypokalemia: Status: Acute (4) Metabolic alkalosis: Status: Acute (5) Acute gastroenteritis: Status: Acute (6) Dehydration: Status: Acute (7) Hypertension: Status: Acute Plan: BP MONITORING (8) UTI (urinary tract infection): Status: Acute
[2021-12-03 11:30] LABS: ANTI-NUCLEAR ANTIBODY TEST None Detected (None Detected)
[2021-12-03] MEDS: NS + KCL 40 MEQ/L 1,000 ML IV SCH (17:05)
[2021-12-04] MEDS: ZOSYN VIAL 3.375 GRAMS 3.375 G in NS 100 ML IV 100 ML IV SCH ×3 (05:04→21:17)
[2021-12-04 05:07] LABS: BASOPHILS # (AUTO) 0.1 X10^3/uL (0.0-0.1); BASOPHILS % (AUTO) 1.3 % (0.2-1.0); EOSINOPHILS # (AUTO) 0.1 x10^3/uL (0.0-0.2); EOSINOPHILS % (AUTO) 2.7 % (0.9-2.9); HEMATOCRIT 31.3 % (36.0-47.0); HEMOGLOBIN 11.1 g/dL (12.0-16.0); LYMPHOCYTES # (AUTO) 2.1 X10^3/uL (1.3-2.9); LYMPHOCYTES % (AUTO) 45.2 % (21.0-51.0); MEAN CORPUSCULAR HEMOGLOBIN 39.1 pg (27.0-34.0); MEAN CORPUSCULAR HGB CONC 35.7 g/dL (33.0-35.0); MEAN CORPUSCULAR VOLUME 109.8 fL (80.0-100.0); MEAN PLATELET VOLUME 8.2 fL (7.4-11.0); MONOCYTES # (AUTO) 0.3 x10^3/uL (0.3-0.8); MONOCYTES % (AUTO) 7.2 % (0.0-13.0); NEUTROPHILS # (AUTO) 2.1 x10^3/uL (2.2-4.8); NEUTROPHILS % (AUTO) 43.6 % (42.0-75.0); RED BLOOD COUNT 2.85 X10^6/uL (3.5-5.4); RED CELL DISTRIBUTION WIDTH 13.7 % (11.6-16.5); WHITE BLOOD COUNT 4.7 X10^3/uL (3.6-10.0)
[2021-12-04 05:19] LABS: ALANINE AMINOTRANSFERASE 29 Units/L (12-78); ALBUMIN 2.3 g/dL (3.4-5.0); ALKALINE PHOSPHATASE 76 Units/L (46-116); ASPARTATE AMINO TRANSFERASE 40 Units/L (15-37); BLOOD UREA NITROGEN 1 mg/dL (7-18); CALCIUM 7.9 mg/dL (8.5-10.1); CARBON DIOXIDE 30.3 mmol/L (21-32); CHLORIDE 106 mmol/L (98-107); COR CA(FOR HYPOALB) 9.3 mg/dL (8.5-10.1); MAGNESIUM 1.9 mg/dL (1.7-2.9); SODIUM 142 mmol/L (136-145); TOTAL PROTEIN 5.4 g/dL (6.4-8.2); eGFR NON BLACK RACES > 60 (>60)
[2021-12-04 05:34] LABS: PLATELET MORPHOLOGY COMMENT NORMAL (NORMAL); STOMATOCYTES 1+
[2021-12-04] MEDS: MAGNESIUM SULFATE 1 GRAM/100 mL PREMIX 1 G/100 ML BAG IV PRN ×2 (07:55→08:52)
[2021-12-04] MEDS: PROTONIX INJ 40 MG VIAL IVP SCH ×2 (08:57→20:35)
[2021-12-04] MEDS: VANCOMYCIN HCL 250 MG CAP PO SCH ×4 (08:57→20:35)
[2021-12-04] MEDS: METROGEL TOP SCH ×2 (10:11→20:35)
--- NOTE | 2021-12-04 11:21 | PCM.PROG ---
Progress Note Progress Note for Day of Date of Exam: 12/04/21 Subjective Subjective: Patient seen at bedside, no events overnight. She is feeling better today. She had 3 episodes of diarrhea yesterday. She still has some weakness when ambulating and feels dizzy at times. Her appetite is gradually improving. Potassium is 4 today. CTAP: acute vs chronic proctocolitis, hepatomegaly Stool Cx : (-) + C diff Urine cx: 3+ organisms, contamination Blood cx: no growth Plan: continue current treatment with IV Zosyn and PO Vancomycin. Continue potassium/ mag replacement as per protocol. Advance diet as tolerated. Continue anti-emetics. Advised to ambulate as tolerated. Monitor AM labs. Past Medical Family Social History Allergies: Allergies No Known Drug Allergies Allergy (Verified 11/29/21 17:54) Vital Signs and I&O's Vital Signs: Temperature 98.5 F Pulse Rate [Right] 85 Pulse Rate 84 Respiratory Rate 20 Blood Pressure [Left Arm] 122/70 Blood Pressure 113/54 O2 Sat by Pulse Oximetry 99 Intake and Output: Intake & Output 12/01/21 12/02/21 12/03/21 12/04/21 23:59 23:59 23:59 23:59 Intake Total 3401 / 3401 2523 / 2523 2379 / 2379 615 / 615 Output Total 50 / 50 Balance 3398 / 3398 2473 / 2473 2379 / 2379 615 / 615 Physical Exam Oriented: Normal Eyes: Normal Ear: Normal Nose: Normal Throat: Normal Cardiovascular: Normal : Normal Auscultation: Bowel Sounds: Normal Tenderness: Epigastric and Mild Skin: Normal and Decreased Turgur Musculoskeletal: negative Swelling or Tender Psychiatric: Normal Affect: Normal Speech Pattern: Clear and Appropriate Laboratory and Diagnostics Result Diagrams: 12/04/21 04:30 12/04/21 04:30 Labs: 12/02/21 06:48 Stool Stool Culture - Final 12/02/21 06:48 Stool - Final 11/29/21 19:13 Blood Blood Culture - Preliminary 11/29/21 18:50 Blood Blood Culture - Preliminary 11/29/21 20:10 Urine,Clean Catch Urine Culture - Final Laboratory WBC 4.7 X10^3/uL (3.6-10.0) 12/04/21 04:30 RBC 2.85 X10^6/uL (3.5-5.4) L 12/04/21 04:30 Hgb 11.1 g/dL (12.0-16.0) L 12/04/21 04:30 Hct 31.3 % (36.0-47.0) L 12/04/21 04:30 MCV 109.8 fL (80.0-100.0) H 12/04/21 04:30 MCH 39.1 pg (27.0-34.0) H 12/04/21 04:30 MCHC 35.7 g/dL (33.0-35.0) H 12/04/21 04:30 RDW 13.7 % (11.6-16.5) 12/04/21 04:30 Plt Count 253 X10^3/uL (150.0-450.0) 12/04/21 04:30 Plt Count Comment Adequate (ADEQUATE) 12/04/21 04:30 MPV 8.2 fL (7.4-11.0) 12/04/21 04:30 Neut % (Auto) 43.6 % (42.0-75.0) 12/04/21 04:30 Lymph % (Auto) 45.2 % (21.0-51.0) 12/04/21 04:30 [place] % (Auto) 7.2 % (0.0-13.0) 12/04/21 04:30 Eos % (Auto) 2.7 % (0.9-2.9) 12/04/21 04:30 Baso % (Auto) 1.3 % (0.2-1.0) H 12/04/21 04:30 Neut # (Auto) 2.1 x10^3/uL (2.2-4.8) L 12/04/21 04:30 Lymph # (Auto) 2.1 X10^3/uL (1.3-2.9) 12/04/21 04:30 [place] # (Auto) 0.3 x10^3/uL (0.3-0.8) 12/04/21 04:30 Eos # (Auto) 0.1 x10^3/uL (0.0-0.2) 12/04/21 04:30 Baso # (Auto) 0.1 X10^3/uL (0.0-0.1) 12/04/21 04:30 Absolute Nucleated RBC 0.1 /100WBC 12/04/21 04:30 Plt Morphology Comment Normal (NORMAL) 12/04/21 04:30 RBC Morphology Abnormal (NORMAL) A 12/04/21 04:30 Macrocytosis 1+ A 12/04/21 04:30 Stomatocytes 1+ A 12/04/21 04:30 ESR 7 MM/HOUR (0-20) 11/29/21 17:25 Sample Site Lbra 12/01/21 14:55 ABG pH 7.670 (7.35-7.45) H* 12/01/21 14:55 ABG pCO2 37.0 mmHg (35.0-45.0) 12/01/21 14:55 ABG pO2 88.0 mmHg (80.0-100.0) 12/01/21 14:55 ABG HCO3 42.7 mmol/L (22-26) H* 12/01/21 14:55 ABG O2 Saturation 98.0 % (90-100) 12/01/21 14:55 ABG Base Excess 20.5 mmol/L (-2.0-2.0) H 12/01/21 14:55 Gregory Test N/a 12/01/21 14:55 A-a Gradient 15.0 mmHg 12/01/21 14:55 FiO2 21.0 12/01/21 14:55 Blood Gas Comments Pt melissa well elj 12/01/21 14:55 Sodium 142 mmol/L (136-145) 12/04/21 04:30 Corrected Sodium TNP 12/04/21 04:30 Potassium 4.0 mmol/L (3.5-5.1) 12/04/21 04:30 Chloride 106 mmol/L (98-107) 12/04/21 04:30 Carbon Dioxide 30.3 mmol/L (21-32) 12/04/21 04:30 BUN 1 mg/dL (7-18) L 12/04/21 04:30 Creatinine 0.80 mg/dL (0.55-1.02) 12/04/21 04:30 Est GFR (MDRD) Af Amer > 60 (>60) 12/04/21 04:30 Est GFR (MDRD) Non-Af > 60 (>60) 12/04/21 04:30 Glucose 78 mg/dL (65-99) 12/04/21 04:30 POC Glucose (mg/dL) 92 mg/dL (65-99) 11/30/21 12:03 Lactic Acid 1.4 mmol/L (0.4-2.0) 12/01/21 05:35 Calcium 7.9 mg/dL (8.5-10.1) L 12/04/21 04:30 Corrected Calcium 9.3 mg/dL (8.5-10.1) 12/04/21 04:30 Magnesium 1.9 mg/dL (1.7-2.9) 12/04/21 04:30 Iron 257 ug/dL (50-175) H 11/29/21 17:25 Transferrin 181 mg/dL (202-364) L 11/29/21 17:25 Ferritin 292 ng/mL (8-252) H 11/29/21 17:25 Total Bilirubin 0.70 mg/dL (0.2-1.0) 12/04/21 04:30 AST 40 Units/L (15-37) H 12/04/21 04:30 ALT 29 Units/L (12-78) 12/04/21 04:30 Alkaline Phosphatase 76 Units/L (46-116) 12/04/21 04:30 Creatine Kinase 743 Units/L (26-192) H 12/01/21 04:11 Troponin I High Sens 9.0 ng/L (4.0-60.0) 12/01/21 04:11 C-Reactive Protein 1.90 mg/L (0-3.0) 11/29/21 17:25 Total Protein 5.4 g/dL (6.4-8.2) L 12/04/21 04:30 Albumin 2.3 g/dL (3.4-5.0) L 12/04/21 04:30 Globulin 3.1 g/dL (2.5-4.5) 12/04/21 04:30 Albumin/Globulin Ratio 0.7 Ratio (1.1-2.1) L 12/04/21 04:30 Vitamin B12 1269 pg/mL (193-986) H 11/29/21 17:25 Folate 1.4 ng/mL (>8.6) L 11/29/21 17:25 Free T4 1.28 ng/dL (0.76-1.46) 11/29/21 17:25 Free T3 pg/dL 4.2 pg/mL (2.5-4.3) 11/29/21 17:25 TSH 3rd Generation 5.077 uIU/mL (0.358-3.74) H 11/29/21 17:25 Specimen Type Clean catch urine 11/29/21 20:10 Urine Color Straw (YELLOW) 11/29/21 20:10 Urine Appearance Clear (CLEAR) 11/29/21 20:10 Urine pH 7.0 (5.0 - 8.0) 11/29/21 20:10 Ur Specific [place] 1.015 (1.000-1.030) 11/29/21 20:10 Urine Protein Negative (NEGATIVE) 11/29/21 20:10 Urine Glucose (UA) Negative (NEGATIVE) 11/29/21 20:10 Urine Ketones Negative (NEGATIVE) 11/29/21 20:10 Urine Blood Negative (NEGATIVE) 11/29/21 20:10 Urine Nitrite Negative (NEGATIVE) 11/29/21 20:10 Urine Bilirubin Negative (NEGATIVE) 11/29/21 20:10 Urine Urobilinogen Normal (NORMAL) 11/29/21 20:10 Ur Leukocyte Esterase Negative (NEGATIVE) 11/29/21 20:10 Stool Description 150g unformed brown 12/02/21 06:48 Stl Occult Blood (IFOB) Negative (NEGATIVE) 12/02/21 06:48 Stool for White Cells Positive (NEGATIVE) A 12/02/21 06:48 Stl C. diff Tox B Gene Positive (NEGATIVE) A 12/02/21 06:48 Stl C. diff [id number] Presumptive negative (NEGATIVE) 12/02/21 06:48 Stool H. pylori Ag Negative (NEGATIVE) 12/02/21 06:48 Acetone, Semi-Quant Negative (NEGATIVE) 11/29/21 17:25 SHERLYN Screen None detected (None Detected) 11/29/21 17:25 SHERLYN Titer TNP 11/29/21 17:25 SHERLYN Pattern TNP 11/29/21 17:25 C. difficile Toxin A&B Negative (NEGATIVE) 12/02/21 06:48 Plan (1) C. difficile colitis: Status: Acute (2) Proctocolitis: Status: Acute (3) Hypokalemia: Status: Acute (4) Metabolic alkalosis: Status: Acute (5) Acute gastroenteritis: Status: Acute (6) Dehydration: Status: Acute (7) Hypertension: Status: Acute Plan: BP MONITORING (8) UTI (urinary tract infection): Status: Acute
[2021-12-05] MEDS: ZOSYN VIAL 3.375 GRAMS 3.375 G in NS 100 ML IV 100 ML IV SCH (05:02)
[2021-12-05 05:07] LABS: BASOPHILS % (AUTO) 0.9 % (0.2-1.0); EOSINOPHILS # (AUTO) 0.1 x10^3/uL (0.0-0.2); EOSINOPHILS % (AUTO) 2.2 % (0.9-2.9); HEMATOCRIT 30.5 % (36.0-47.0); HEMOGLOBIN 10.9 g/dL (12.0-16.0); LYMPHOCYTES # (AUTO) 1.7 X10^3/uL (1.3-2.9); LYMPHOCYTES % (AUTO) 42.4 % (21.0-51.0); MEAN CORPUSCULAR HGB CONC 35.5 g/dL (33.0-35.0); MEAN CORPUSCULAR VOLUME 109.7 fL (80.0-100.0); MONOCYTES # (AUTO) 0.4 x10^3/uL (0.3-0.8); MONOCYTES % (AUTO) 9.9 % (0.0-13.0); NEUTROPHILS # (AUTO) 1.8 x10^3/uL (2.2-4.8); NEUTROPHILS % (AUTO) 44.6 % (42.0-75.0); RED BLOOD COUNT 2.78 X10^6/uL (3.5-5.4); RED CELL DISTRIBUTION WIDTH 13.4 % (11.6-16.5); WHITE BLOOD COUNT 4.1 X10^3/uL (3.6-10.0)
[2021-12-05 05:17] LABS: ALANINE AMINOTRANSFERASE 25 Units/L (12-78); ALBUMIN 2.2 g/dL (3.4-5.0); ALKALINE PHOSPHATASE 72 Units/L (46-116); ASPARTATE AMINO TRANSFERASE 33 Units/L (15-37); BLOOD UREA NITROGEN 1 mg/dL (7-18); CALCIUM 7.8 mg/dL (8.5-10.1); CARBON DIOXIDE 27.3 mmol/L (21-32); CHLORIDE 108 mmol/L (98-107); COR CA(FOR HYPOALB) 9.2 mg/dL (8.5-10.1); CREATININE 0.84 mg/dL (0.55-1.02); SODIUM 142 mmol/L (136-145); TOTAL PROTEIN 5.2 g/dL (6.4-8.2); eGFR NON BLACK RACES > 60 (>60)
[2021-12-05 06:09] LABS: PLATELET MORPHOLOGY COMMENT NORMAL (NORMAL); STOMATOCYTES SLIGHT
[2021-12-05 07:56] VITALS: BP 129/64
[2021-12-05] MEDS: PROTONIX INJ 40 MG VIAL IVP SCH (08:35)
[2021-12-05] MEDS: VANCOMYCIN HCL 250 MG CAP PO SCH (08:35)
[2021-12-05] MEDS: METROGEL TOP SCH (08:36)
== END 2021-12-05 09:20 | disposition home or self-care (01) | DRG 641 ==
LOC: ICU 17:02 → MED/SURG 12-02 13:17
PROVIDERS: ADMIT Internal Medicine; ATTEND Internal Medicine
DX: R79.89 Other specified abnormal findings of blood chemistry; A04.72 Enterocolitis due to Clostridium difficile, not specified as recurrent; R11.2 Nausea with vomiting, unspecified; K21.9 Gastro-esophageal reflux disease without esophagitis; N39.0 Urinary tract infection, site not specified; R94.31 Abnormal electrocardiogram [ECG] [EKG]; E86.0 Dehydration; R53.1 Weakness; I10 Essential (primary) hypertension; E87.6 Hypokalemia; L71.8 Other rosacea; M62.82 Rhabdomyolysis; E87.3 Alkalosis